=== PATIENT | female | born 1945 | race Caucasian/White ===

== ENCOUNTER 2017-12-05 19:29 | Emergency (ER) | payer MEDICARE, OTHER | END 2017-12-05 20:47 | disposition home or self-care (01) | LOC: FTE 19:29 | DX: J30.2 Other seasonal allergic rhinitis (principal); I10 Essential (primary) hypertension; E11.9 Type 2 diabetes mellitus without complications | CPT/HCPCS: 99283 ==

== ENCOUNTER 2018-05-13 13:17 | Emergency (ER) | payer MEDICARE, OTHER | END 2018-05-13 14:19 | disposition home or self-care (01) | LOC: FTE 14:19 | DX: A49.9 Bacterial infection, unspecified (principal); I10 Essential (primary) hypertension; E11.9 Type 2 diabetes mellitus without complications | CPT/HCPCS: 99283 ==